=== PATIENT | male | born 1985 | race Caucasian/White ===

== ENCOUNTER 2023-11-05 09:16 | Emergency (ER) | payer MEDICAID ==
[~2023-11-05] VITALS: Ht 172.7 cm; Wt 94.8 kg
[2023-11-05 09:24] VITALS: BP 117/72; PULSE 66; RESP 14; TEMP 97.8; O2SAT 99
[2023-11-05] MEDS: KETOROLAC 30 MG/ML VIAL IM ONE (09:50)
== END 2023-11-05 10:50 | disposition home or self-care (01) ==
LOC: MED 09:16
DX: S93.402A Sprain of unspecified ligament of left ankle, initial encounter (principal); Y93.66 Activity, soccer; Y93.89 Activity, other specified; Y92.89 Other specified places as the place of occurrence of the external cause; Y99.8 Other external cause status
CPT/HCPCS: 29515; 73610; 96372; 99283; J1885